=== PATIENT | female | born 1995 | race Two or more races ===

== ENCOUNTER 2024-03-19 04:24 | Emergency (ER) | payer OTHER ==
[~2024-03-19] VITALS: Ht 162.6 cm; Wt 101.6 kg
[2024-03-19 04:44] VITALS: BP 134/76; PULSE 106; RESP 16; O2SAT 97
[2024-03-19 05:10] LABS: Urine Bacteria MANY /hpf (None Seen); Urine Blood 1+ /uL (Negative); Urine Clarity Turbid (Clear); Urine Color Yellow (Yellow); Urine Mucus FEW (None Seen); Urine Protein, UAD 1+ (Negative); Urine Specific Gravity 1.027 (1.001-1.035); Urine Urobilinogen Normal (Negative); Urine WBC 16 /hpf (0 - 5); Urine pH 5.5 (5.0-9.0)
== END 2024-03-19 11:10 | disposition left against medical advice (07) ==
LOC: ER 04:24
DX: O21.8 Other vomiting complicating pregnancy (principal); Z53.21 Procedure and treatment not carried out due to patient leaving prior to being seen by health care provider; Z3A.16 16 weeks gestation of pregnancy
CPT/HCPCS: 81001